=== PATIENT | female | born 1965 | race African-American/Black ===

== ENCOUNTER 2016-09-29 08:47 | Emergency (ER) | payer MEDICAID ==
[~2016-09-29] VITALS: Ht 170.2 cm; Wt 81.6 kg
[~2016-09-29 08:47] MED LIST: BENADRYL50 MG ORAL; NKM; PREDNISONE20 MG ORAL; RANITIDINE HCL150 MG ORAL
--- NOTE | 2016-09-29 10:44 | Diagnostic Imaging Report ---
Indications: PAIN Technique: 3 views of the right foot Comparison: None Findings: No acute fractures. No dislocations. Joint spaces are preserved. No radiopaque foreign body. Normal mineralization. Impression: No acute process
--- NOTE | 2016-09-29 10:44 | Diagnostic Imaging Report ---
Indication: PAIN Technique: 3 views of the right ankle Comparison: none Findings: No acute fractures. No dislocations. Joint spaces are preserved. Normal mineralization. No radiopaque foreign body. Impression: Negative
--- NOTE | 2016-09-29 10:54 | Emergency Room Report ---
History of Present Illness General Chief Complaint: Lower Extremity Injury Source: Patient Present Illness HPI [id number] with right foot pain s/p trip/fall 2 days prior. Able to ambulate. Didnt take any OTC meds for pain. No previous injury. Feels well otherwise. Pain to top of right foot. Allergies: Coded Allergies: SULFA (SULFONAMIDE ANTIBIOTICS) (Verified Allergy, Mild, Rash, 03/30/14) Patient History Past Medical History: none Past Surgical History: none Pertinent Family History: none Social History: Denies: alcohol use, drug use, smoking Last Menstrual Period: on period Now: No Immunizations: UTD Nursing Documentation-[facility] Past Medical History: No History, Except For Review of Systems All Other Systems: negative except mentioned in HPI Physical Exam Vital Signs Date Time Temp Pulse Resp B/P Pulse Ox O2 Delivery O2 Flow Rate FiO2 09/29/16 09:09 98.1 76 16 144/88 100 Room Air Sp02 EP Interpretation: reviewed, normal General Appearance: normal inspection, well appearing, no apparent distress, alert Head: atraumatic ENT: normal ENT inspection, hearing grossly normal, normal voice Neck: normal inspection, full range of motion, supple, no bony tend Respiratory: normal inspection, lungs clear, normal breath sounds, no respiratory distress, no retraction, no wheezing Cardiovascular #1: regular rate, rhythm, no edema Gastrointestinal: normal inspection, normal bowel sounds, non tender, soft, no guarding, no hernia Genitourinary: no CVA tenderness Musculoskeletal: normal inspection, back normal, normal range of motion, Kris' s Sign negative, other - Right foot: Mild swelling. Ttp to dorsum of foot. 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, motor strength/tone normal, speech normal Psychiatric: normal inspection, judgement/insight normal, mood/affect normal Skin: normal inspection, normal color, no rash Medical Decision Making Diagnostic Impression: Primary Impression: Contusion of right foot Qualified Codes: S90.31XA - Contusion of right foot, initial encounter ER Course xrays of right foot and ankle negative for acute injury DC home with RX iburpofen, RICE PMD followup Last Vital Signs Date Time Temp Pulse Resp B/P Pulse Ox O2 Delivery O2 Flow Rate FiO2 2/15/17 09:09 98.1 76 16 144/88 100 Room Air Status: improved Disposition: HOME, SELF-CARE Referrals: NOT CHOSEN [facility]/,REFERRING (PCP) XANDER DENNIS M.D. Sep 29, 2016 10:54
[2016-09-29] MEDS ORDERED: IBUPROFEN800 M1 PO (10:56)
[2016-09-29 11:05] VITALS: BP 135/84
== END 2016-09-29 11:05 | disposition home or self-care (01) ==
LOC: EMR 09:25
DX: S90.31XA Contusion of right foot, initial encounter (principal); W01.0XXA Fall on same level from slipping, tripping and stumbling without subsequent striking against object, initial encounter; Y92.9 Unspecified place or not applicable; Z88.2 Allergy status to sulfonamides
CPT/HCPCS: 99284

== ENCOUNTER 2017-05-18 04:13 | Emergency (ER) | payer MEDICAID, OTHER ==
[~2017-05-18] VITALS: Ht 170.2 cm; Wt 68.0 kg
[~2017-05-18 04:13] MED LIST changes: +IBUPROFEN800 M1 PO
[2017-05-18 04:26] VITALS: BP 132/84
[2017-05-18] MEDS ORDERED: PREDNISONE20 MG ORAL (04:42)
[2017-05-18] MEDS ORDERED: CLOTRIMAZOLE15 GM TOPIC (04:42)
[2017-05-18] MEDS ORDERED: BENADRYL25 MG ORAL (04:42)
--- NOTE | 2017-05-18 04:43 | Emergency Room Report ---
History of Present Illness General Chief Complaint: Allergic Reaction Source: Patient, Medical Record Present Illness HPI This is a 52-year-old female with history lupus. She present with a rash for a week. Itching in nature. No fever or chills. No nausea no vomiting. Denies any other complaint. She try [id number] cream without much success. Denies any other complaint. Allergies: Coded Allergies: SULFA (SULFONAMIDE ANTIBIOTICS) (Verified Allergy, Mild, Rash, 03/30/14) Patient History Past Medical History: see triage record, old chart reviewed Past Surgical History: other Pertinent Family History: none Social History: Denies: smoking Last Menstrual Period: 05/08/17 Now: No Immunizations: other Reviewed Nursing Documentation: PMH: Agreed, PSxH: Agreed Review of Systems Eye: Denies: eye pain, blurred vision ENT: Denies: ear pain, nose congestion, throat swelling Respiratory: Denies: cough, shortness of breath Cardiovascular: Denies: chest pain, palpitations Gastrointestinal: Denies: abdominal pain, diarrhea, nausea, vomiting Musculoskeletal: Denies: back pain, joint pain Skin: Reports: rash Neurological: Denies: headache, numbness Endocrine: Denies: increased thirst, increased urine Hematologic/Lymphatic: Denies: easy bruising All Other Systems: negative except mentioned in HPI Physical Exam Vital Signs Date Time Temp Pulse Resp B/P (MAP) Pulse Ox O2 Delivery O2 Flow Rate FiO2 05/18/17 04:18 97.5 88 16 132/84 98 Room Air vitals normal Sp02 EP Interpretation: reviewed, normal General Appearance: well appearing, no apparent distress, alert Head: normocephalic, atraumatic Eyes: bilateral eye PERRL, bilateral eye EOMI ENT: hearing grossly normal, normal pharynx Neck: full range of motion, supple, no meningismus Respiratory: chest non-tender, lungs clear, normal breath sounds Cardiovascular #1: regular rate, rhythm, no murmur Gastrointestinal: normal bowel sounds, non tender, no mass, no organomegaly, no bruit, non-distended Musculoskeletal: back normal, gait/station normal, normal range of motion Psychiatric: mood/affect normal Skin: warm/dry, other - Patient have scattered psoriatic rash that is chronic. She also has diffuse macular papular rash along the skin line. Medical Decision Making Diagnostic Impression: Primary Impression: Pityriasis rosea-like skin eruption ER Course Patient with a skin rash. 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 No evidence of cellulitis or abscess. Last Vital Signs Date Time Temp Pulse Resp B/P (MAP) Pulse Ox O2 Delivery O2 Flow Rate FiO2 05/18/17 04:26 97.5 88 16 132/84 98 Room Air Status: unchanged Disposition: HOME, SELF-CARE Condition: Stable Scripts Clotrimazole* (LOTRIMIN*) 15 Gm Cream..g. 1 APPLIC TOPIC TWICE A DAY, #30 GM Prov: MARLEE CASTANEDA M.D. 05/18/17 Prednisone* (PREDNISONE*) 20 Mg Tablet 60 MG ORAL DAILY, #15 TAB Prov: MARLEE CASTANEDA M.D. 05/18/17 Diphenhydramine Hcl* (BENADRYL*) 25 Mg Capsule 50 MG ORAL Q6H Y for Itching, #30 CAP Prov: MARLEE CASTANEDA M.D. 05/18/17 Referrals: PREFERRED [facility],REFERRING (PCP) Additional Instructions: Followup with your DrMarlon in 7 days 3 return if symptom worsen. MARLEE CASTANEDA M.D. May 18, 2017 04:43
[2017-05-18 04:47] VITALS: BP 129/75
== END 2017-05-18 04:47 | disposition home or self-care (01) ==
LOC: EMR 04:28
DX: L42 Pityriasis rosea (principal)
CPT/HCPCS: 99284

== ENCOUNTER 2017-05-25 00:35 | Emergency (ER) | payer OTHER ==
[~2017-05-25] VITALS: Ht 170.2 cm; Wt 72.6 kg
[~2017-05-25 00:35] MED LIST changes: +BENADRYL25 MG ORAL; +CLOTRIMAZOLE15 GM TOPIC
[2017-05-25] MEDS ORDERED: Sodium Chloride 500ML 500 ML IV ONE (00:53)
[2017-05-25] MEDS ORDERED: Solu-MEDROL 125mg Inj IVP ONE (01:00)
[2017-05-25] MEDS ORDERED: DiphenhydrAMINE 50mg/ml Inj IVP ONE (01:00)
[2017-05-25] MEDS ORDERED: HYDROCORTISONE-30 GM TOPIC (02:09)
[2017-05-25] MEDS ORDERED: PREDNISONE20 MG ORAL (02:09)
[2017-05-25] MEDS ORDERED: DIPHENHYDRAMINE25 M1 ORAL (02:09)
[2017-05-25] MEDS ORDERED: RANITIDINE HCL150 MG ORAL (02:09)
[2017-05-25 02:15] VITALS: BP 131/87
--- NOTE | 2017-05-25 02:35 | Emergency Room Report ---
History of Present Illness General Chief Complaint: Skin Rash/Abscess Source: Patient Present Illness HPI 52-year-old female presents ED complaining of rash. States she was here approximately one week ago for similar presentation. Patient was prescribed Benadryl, prednisone and clotrimazole cream without relief. Patient states rash is persisting. Patient states it is very itchy. Patient states she had similar rash a few years ago and was seen here. Patient was given IV medications and states that the rash resolves. Patient denies any known food or drug allergies. Denies fevers or chills. Denies any pain. No other aggravating relieving factors. Denies any other associated symptoms Allergies: Coded Allergies: SULFA (SULFONAMIDE ANTIBIOTICS) (Verified Allergy, Mild, Rash, 03/30/14) Patient History Past Medical History: other - lupus Past Surgical History: none Pertinent Family History: none Last Menstrual Period: Apr Now: No Immunizations: UTD Reviewed Nursing Documentation: PMH: Agreed, PSxH: Agreed Review of Systems All Other Systems: negative except mentioned in HPI Physical Exam Vital Signs Date Time Temp Pulse Resp B/P (MAP) Pulse Ox O2 Delivery O2 Flow Rate FiO2 05/25/17 00:39 98.1 82 16 131/87 97 Room Air Sp02 EP Interpretation: reviewed, normal General Appearance: no apparent distress, alert, GCS 15, non-toxic Head: normocephalic, atraumatic Eyes: bilateral eye normal inspection, bilateral eye PERRL ENT: hearing grossly normal, normal pharynx, no angioedema, normal voice Neck: full range of motion, supple/symm/no masses Respiratory: chest non-tender, lungs clear, normal breath sounds, speaking full sentences Cardiovascular #1: regular rate, rhythm, no edema Cardiovascular #2: 2+ carotid (R), 2+ carotid (L), 2+ radial (R), 2+ radial (L) , 2+ dorsalis pedis (R), 2+ dorsalis pedis (L) Gastrointestinal: normal bowel sounds, non tender, soft, non-distended, no guarding, no rebound Rectal: deferred Genitourinary: normal inspection, no CVA tenderness Musculoskeletal: back normal, gait/station normal, normal range of motion, non- tender Neurologic: alert, oriented x3, responsive, motor strength/tone normal, sensory intact, speech normal Psychiatric: judgement/insight normal, memory normal, mood/affect normal, no suicidal/homicidal ideation Reflexes: 3+ bicep (R), 3+ bicep (L), 3+ tricep (R), 3+ tricep (L), 3+ knee (R) , 3+ knee (L) Skin: normal color, warm/dry, well hydrated, other - diffuse urticarial rash Lymphatic: no adenopathy Medical Decision Making Diagnostic Impression: Primary Impression: Allergic reaction Qualified Codes: T78.40XD - Allergy, unspecified, subsequent encounter ER Course Hospital Course 52-year-old female presents with diffuse rash, itchy Differential diagnoses include: allergic reaction, anaphylaxis, cellulitis Clinical course Patient placed on stretcher. reconditioning associate. After initial history and physical exam reveals a middle-aged female in no acute distress. On exam there is a diffuse urticarial rash noted to the arms, legs, abdomen. I ordered Solu-Medrol, Benadryl, pepcid, IV fluids Upon reassessment patient states she feels better. rash has subsided i. I feel this is a highly complex case requiring extensive working including EKG/Rhythm strip, Xray/CT/US, Blood/urine lab work, repeat exams while in ED, and administration of strong opiates/narcotics for pain control, admission to hospital or close patient follow up. Diagnosis - allergic reaction Stable and discharged to home with prescriptions for Zantac, prednisone, Benadryl, hydrocortisone cream. Followup with PMD. Return to ED if symptoms recur or worsen Last Vital Signs Date Time Temp Pulse Resp B/P (MAP) Pulse Ox O2 Delivery O2 Flow Rate FiO2 05/25/17 00:39 98.1 82 16 131/87 97 Room Air Status: improved Disposition: HOME, SELF-CARE Condition: Stable Scripts Hydrocortisone/Aloe Vera 1%* (HYDROCORTISONE-ALOE 1% CREAM*) Y Cr 1 APPLIC TOPIC Q6H Y for Itching, #30 GM Prov: SARAH DURAND M.D. 05/25/17 Diphenhydramine Hcl* (DIPHENHYDRAMINE HCL*) 25 Mg Capsule 25 MG ORAL Q6H Y for Itching, #30 CAP 0 Refills Prov: SARAH DURAND M.D. 05/25/17 Ranitidine Hcl* (ZANTAC*) 150 Mg Tablet 150 MG ORAL TWICE A DAY, #30 TAB Prov: SARAH DURAND M.D. 05/25/17 Prednisone* (PREDNISONE*) 20 Mg Tablet 40 MG ORAL DAILY for 5 Days, TAB Prov: SARAH DURAND M.D. 05/25/17 Patient Instructions: Melisa [id number] SARAH DURAND M.D. May 25, 2017 02:35
== END 2017-05-25 02:15 | disposition home or self-care (01) ==
LOC: EMR 01:10
DX: T78.40XA Allergy, unspecified, initial encounter (principal); X58.XXXA Exposure to other specified factors, initial encounter; Z88.2 Allergy status to sulfonamides; M32.9 Systemic lupus erythematosus, unspecified
CPT/HCPCS: 96361; 96374; 96375; 99284; J1200; J2930; J7040; S0028

== ENCOUNTER 2017-06-20 22:58 | Emergency (ER) | payer OTHER ==
[~2017-06-20] VITALS: Ht 170.2 cm; Wt 81.6 kg
[~2017-06-20 22:58] MED LIST changes: +DIPHENHYDRAMINE25 M1 ORAL; +HYDROCORTISONE-30 GM TOPIC
[2017-06-20] MEDS ORDERED: DiphenhydrAMINE 50mg/ml Inj IVP ONE (23:45)
[2017-06-20] MEDS ORDERED: Solu-MEDROL 125mg Inj IVP ONE (23:45)
[2017-06-20] MEDS ORDERED: PREDNISONE20 MG ORAL (23:51)
[2017-06-20] MEDS ORDERED: DIPHENHYDRAMINE50 M1 ORAL (23:51)
--- NOTE | 2017-06-20 23:51 | Emergency Room Report ---
History of Present Illness General Chief Complaint: Skin Rash/Abscess Source: Patient Present Illness HPI Is a 52-year-old female with a history lupus. She's not on any medication. She presents with a rash to her body. His been on off for about a month now. She was seen here last month and prescribe medication. It got better and now came back again for last couple days. Mostly on her torso and abdomen. There is itchy. No fever or chills. No new medication. No new food for any other product. No respiratory complaint. Allergies: Coded Allergies: SULFA (SULFONAMIDE ANTIBIOTICS) (Verified Allergy, Mild, Rash, 03/30/14) Patient History Past Medical History: see triage record, old chart reviewed Past Surgical History: other Pertinent Family History: none Social History: Denies: smoking Last Menstrual Period: May Now: No Immunizations: other Reviewed Nursing Documentation: PMH: Agreed, PSxH: Agreed Review of Systems Eye: Denies: eye pain, blurred vision ENT: Denies: ear pain, nose congestion, throat swelling Respiratory: Denies: cough, shortness of breath Cardiovascular: Denies: chest pain, palpitations Gastrointestinal: Denies: abdominal pain, diarrhea, nausea, vomiting Musculoskeletal: Denies: back pain, joint pain Skin: Reports: rash Neurological: Denies: headache, numbness Endocrine: Denies: increased thirst, increased urine Hematologic/Lymphatic: Denies: easy bruising All Other Systems: negative except mentioned in HPI Physical Exam Vital Signs Date Time Temp Pulse Resp B/P (MAP) Pulse Ox O2 Delivery O2 Flow Rate FiO2 06/20/17 23:12 98.2 64 18 138/91 98 Room Air vitals normal Sp02 EP Interpretation: reviewed, normal General Appearance: well appearing, no apparent distress, alert Head: normocephalic, atraumatic Eyes: bilateral eye PERRL, bilateral eye EOMI ENT: hearing grossly normal, normal pharynx Neck: full range of motion, supple, no meningismus Respiratory: chest non-tender, lungs clear, normal breath sounds Cardiovascular #1: regular rate, rhythm, no murmur Gastrointestinal: normal bowel sounds, non tender, no mass, no organomegaly, no bruit, non-distended Musculoskeletal: back normal, gait/station normal, normal range of motion Neurologic: alert, oriented x3 Psychiatric: mood/affect normal Skin: warm/dry, other - Diffuse erythematous rash on her back and torso. No abscess. Medical Decision Making Diagnostic Impression: Primary Impression: Dermatitis ER Course Patient with dermatitis. This is most likely any means rather than allergic or infectious. We'll discharge home with Benadryl and steroid. We'll have her followup with her DrMarlon for referral to see a comparative sociology professor. No anaphylaxis. Last Vital Signs Date Time Temp Pulse Resp B/P (MAP) Pulse Ox O2 Delivery O2 Flow Rate FiO2 06/20/17 23:12 98.2 64 18 138/91 98 Room Air Status: improved Disposition: HOME, SELF-CARE Condition: Stable Scripts Diphenhydramine Hcl (DIPHENHYDRAMINE HCL) 50 Mg Capsule 50 MG ORAL Q6H Y for Itching, #30 CAP 0 Refills Prov: MARLEE CASTANEDA M.D. 06/20/17 Prednisone* (PREDNISONE*) 20 Mg Tablet 60 MG ORAL DAILY, #15 TAB Prov: MARLEE CASTANEDA M.D. 06/20/17 Patient Instructions: Rash Additional Instructions: Followup with your DrMarlon in 7 days. You may benefit from referral to see a comparative sociology professor. Return if symptom worsen. MARLEE CASTANEDA M.D. Jun 20, 2017 23:51
[2017-06-20 23:56] VITALS: BP 126/80
[2017-06-20 23:57] VITALS: BP 138/91
== END 2017-06-20 23:58 | disposition home or self-care (01) ==
LOC: EMR 23:34
DX: L30.9 Dermatitis, unspecified (principal); Z88.2 Allergy status to sulfonamides
CPT/HCPCS: 96374; 96375; 99284; J1200; J2930

== ENCOUNTER 2018-02-18 17:46 | Emergency (ER) | payer MEDICAID, OTHER ==
[~2018-02-18] VITALS: Ht 170.2 cm; Wt 81.6 kg
[~2018-02-18 17:46] MED LIST changes: +DIPHENHYDRAMINE50 M1 ORAL
[2018-02-18 18:00] VITALS: BP 137/92
--- NOTE | 2018-02-18 18:25 | Emergency Room Report ---
History of Present Illness General Chief Complaint: Edema Source: Patient Present Illness HPI 52-year-old female presents emergency department complaining of edema on the bilateral feet 1 week in addition to progressive itchy rash to the legs bilaterally. Patient denies pain, fevers, chills, recent travel or ill contacts. She denies history of edema in the past, high blood pressure for cardiac problems. she denies productive cough. Pt. reports swelling resolves in the morning after rest and returns over the course of each day. She reports history of lupus with frequent flares however she typically treats her symptoms with homeopathic remedies. Patient states that she believes the rash began after she was soaking her feet and water with lavender oil. She also reports that onset of her edema occurred after she ate some salty chips for several days in a row. Denies recent steroid use. Patient states that she normally eats very healthy. Denies new medications or body washes or creams. Denies swelling of the lips, tongue , throat or airway. Denies wheezing, or shortness of breath. Denies recent travel, recent illness or ill contacts. denies blisters, oral lesions, or sloughing of the skin Allergies: Coded Allergies: SULFA (SULFONAMIDE ANTIBIOTICS) (Verified Allergy, Mild, Rash, 03/30/14) Patient History Past Medical History: see triage record, other - lupus Past Surgical History: none Pertinent Family History: none Last Menstrual Period: NA Reviewed Nursing Documentation: PMH: Agreed; PSxH: Agreed Nursing Documentation-PM Past Medical History: No Stated History Review of Systems All Other Systems: negative except mentioned in HPI Physical Exam Vital Signs Date Time Temp Pulse Resp B/P (MAP) Pulse Ox O2 Delivery O2 Flow Rate FiO2 02/18/18 17:51 97.9 75 16 137/92 93 Room Air 97.9 Sp02 EP Interpretation: reviewed, normal General Appearance: no apparent distress, alert, GCS 15, non-toxic Head: normocephalic, atraumatic ENT: hearing grossly normal, normal voice, other - no swelling of the lips or tongue Neck: full range of motion Respiratory: chest non-tender, lungs clear, normal breath sounds, speaking full sentences Cardiovascular #1: regular rate, rhythm, normal capillary refill, edema - localized to the dorsum of the bilateral feet, no toe involvement, does not pass level of the ankles. Cardiovascular #2: 2+ dorsalis pedis (R), 2+ dorsalis pedis (L) Musculoskeletal: back normal, gait/station normal, normal range of motion, non- tender, other - bilateral pedal edema Neurologic: alert, oriented x3, responsive, motor strength/tone normal, sensory intact, speech normal, grossly normal Psychiatric: judgement/insight normal Skin: normal color, warm/dry, well hydrated, rash - erythematous papules generalized on bilateral feet, LE's and scant on bilateral forearms. excoriations noted. no particular pattern, no blisters or vesicles. Lymphatic: no adenopathy Medical Decision Making PA Attestation Dr. Francis is my supervising Physician whom patient management has been discussed with. Diagnostic Impression: Primary Impression: Rash and other nonspecific skin eruption Additional Impression: Pedal edema ER Course 52-year-old female presents emergency department complaining of edema on the bilateral feet 1 week in addition to progressive itchy rash to the legs bilaterally. Patient denies pain, fevers, chills, recent travel or ill contacts. She denies history of edema in the past, high blood pressure for cardiac problems. she denies productive cough. Pt. reports swelling resolves in the morning after rest and returns over the course of each day. She reports history of lupus with frequent flares however she typically treats her symptoms with homeopathic remedies. Patient states that she believes the rash began after she was soaking her feet and water with lavender oil. She also reports that onset of her edema occurred after she ate some salty chips for several days in a row. Denies recent steroid use. Patient states that she normally eats very healthy. Denies new medications or body washes or creams. Denies swelling of the lips, tongue , throat or airway. Denies wheezing, or shortness of breath. Denies recent travel, recent illness or ill contacts. denies blisters, oral lesions, or sloughing of the skin. Ddx considered but are not limited to cellulitis, scabies, shingles, varicella, dermatitis, urticaria, eczema, tinea, viral exanthem, SJS, Lupus flare, venous insufficiency, nephritis. Vital signs: are WNL, pt. is afebrile H&PE are most consistent with mild bilateral foot edema, not suspicious for DVT based on HPI and PE. dermatitis also noted no evidence of secondary infection. ORDERS: none required at this time, the diagnosis is clinical ED INTERVENTIONS: Benadryl D/w pt. close outpatient follow up and eval of symptoms. d/w pt. due to lupus and edema oral diuretics may cause decline in renal function and that I will reserve the prescription of these to her PCP as her symptoms are noted to be mild at this time. also d/w pt. benadryl tx as edema could be associated with dermatitis reaction. DISCHARGE: At this time pt. is stable for d/c to home. Will provide printed patient care instructions, and any necessary prescriptions. Care plan and follow up instructions have been discussed with the patient prior to discharge. Last Vital Signs Date Time Temp Pulse Resp B/P (MAP) Pulse Ox O2 Delivery O2 Flow Rate FiO2 02/18/18 17:51 97.9 75 16 137/92 93 Room Air 97.9 Disposition: HOME, SELF-CARE Condition: Stable Scripts Diphenhydramine Hcl (BENADRYL ALLERGY) 25 Mg Tablet 25 MG PO Q6HR, #20 TAB Prov: Dania Juarez 02/18/18 Patient Instructions: Peripheral Edema Additional Instructions: Take medications as directed. - avoid salty foods. - eat plenty of lean protein. Follow up with a Primary Care Provider in 3-5 days for continued evaluation of your symptoms and monitoring of swelling --Please review list of primary care clinics, if you do not already have a primary care provider Return sooner to ED if new symptoms occur, or current symptoms become worse. Do not drink alcohol, drive, or operate heavy machinery while taking Benadryl as this may cause drowsiness. - Please note that this Emergency Department Report was dictated using [employer] captain technology software, occasionally this can lead to erroneous entry secondary to interpretation by the dictation equipment. Dania Juarez Feb 18, 2018 18:25
[2018-02-18] MEDS ORDERED: BENADRYL ALLERG25 M1 PO (18:48)
[2018-02-18 18:55] VITALS: BP 137/92
== END 2018-02-18 18:55 | disposition home or self-care (01) ==
LOC: EMR 18:20
DX: R21 Rash and other nonspecific skin eruption (principal); R60.0 Localized edema; Z88.2 Allergy status to sulfonamides
CPT/HCPCS: 99283

== ENCOUNTER 2018-08-02 12:37 | Emergency (ER) | payer MEDICAID ==
[~2018-08-02] VITALS: Ht 170.2 cm; Wt 86.2 kg
[~2018-08-02 12:37] MED LIST changes: +BENADRYL ALLERG25 M1 PO
[2018-08-02] MEDS ORDERED: NKM (12:45)
--- NOTE | 2018-08-02 13:08 | Emergency Room Report ---
History of Present Illness General Chief Complaint: Chest Pain Source: Patient Present Illness HPI This patient was walking to her car and she experienced a "squeezing" sensation mid-thorax. Lasted about 20 minutes. No sob, diaph, nausea, radiation. No similar history. Not during exertion. CRF: none PMH: lupus, no meds required Allergies: Coded Allergies: SULFA (SULFONAMIDE ANTIBIOTICS) (Verified Allergy, Mild, Rash, 03/30/14) Patient History Now: No Review of Systems Constitutional: Reports: no symptoms Eye: Reports: no symptoms ENT: Reports: no symptoms Respiratory: Reports: no symptoms Cardiovascular: Reports: no symptoms Gastrointestinal: Reports: no symptoms Genitourinary: Reports: no symptoms Musculoskeletal: Reports: no symptoms Skin: Reports: no symptoms Psychiatric: Reports: no symptoms Neurological: Reports: no symptoms Endocrine: Reports: no symptoms Hematologic/Lymphatic: Reports: no symptoms Allergic: Reports: no symptoms All Other Systems: negative except mentioned in HPI Physical Exam Vital Signs Date Time Temp Pulse Resp B/P (MAP) Pulse Ox O2 Delivery O2 Flow Rate FiO2 08/02/18 12:42 98.1 97 18 121/79 96 Room Air Sp02 EP Interpretation: reviewed, normal General Appearance: normal inspection, well appearing, no apparent distress, alert, GCS 15, non-toxic Head: normocephalic, atraumatic Eyes: bilateral eye normal inspection, bilateral eye PERRL, bilateral eye EOMI ENT: normal ENT inspection, hearing grossly normal, normal pharynx, no angioedema, normal voice, moist mucus membranes Neck: normal inspection, full range of motion, supple, no meningismus, no bony tend Respiratory: normal inspection, lungs clear, normal breath sounds, no rhonchi, no respiratory distress, no retraction, no accessory muscle use, no wheezing Cardiovascular #1: normal inspection, regular rate, rhythm, no edema Gastrointestinal: normal inspection, normal bowel sounds, non tender, soft, no mass, non-distended Musculoskeletal: gait/station normal, normal range of motion Neurologic: normal inspection, alert, oriented x3, responsive, motor strength/ tone normal Psychiatric: normal inspection, judgement/insight normal, memory normal Suicide Risk Assessment: Suicidal Ideation: No Had intent to initiate attempt: No Pt's plan for suicide attempt: No Has means to complete attempt: No Skin: normal inspection, normal color, no rash, warm/dry Medical Decision Making Diagnostic Impression: Primary Impression: Chest pain ER Course EMERGENT LABS AND DIAGNOSTIC STUDIES: Lab Results were reviewed by me and interpreted as below. Unremarkable 12-lead EKG Interpretation by Silver Boyd MD: Normal Sinus Rhythm at 97 beats per minute Normal axis QT not prolonged Overall impression is normal sinus rhythm Radiology Results as interpreted by Radiology below were reviewed by Silver Boyd MD : CXR: NAD Nursing Notes Reviewed The patient was placed on a investigative writer, continuous pulse oximetry, and tests as ordered. The patient was treated with aspirin. My differential diagnosis included: ACS, myocardial infarction, angina, pericarditis, aortic dissection, pleurisy, pleural effusion, pneumothorax, pneumonia, PE, costochondritis, PUD, gastritis, GERD, muscular. I observed the patient for a period of time and the patient had nor further complaint. On reassessment, the patient's history, vital signs, exam and studies were all reviewed. I will re-evaluate for further workup and recommendation based on the diagnostic testing results and how the patient responds to treatment. My initial impression was: Atypical chest pain. My final impression was the same. I am not worried about PE, since the patient was not complaining of SOB, and did not have hypoxia, hemoptysis, tachycardia or syncope. Chest x-ray was negative with no signs of acute disease. The patient was advised to arrive back to the ED for new or worsening symptoms. This patient presents with signs and symptoms potentially concerning for coronary ischemia. While it is not possible to be 100% accurate about the etiology of the patient's chest pain at this time (after an ED evaluation.) The patient's KHALIDA Score is: 0. The patient's HEART Score is: 2. I told the patient that the risk of ACS/ischemia is not zero but is very unlikely. The patient confirmed heard my advice and agreed to see their own physician within two days. In addition the name of the on-call pumper gauger apprentice is provided in the discharge papers. Pt. advised to return for further episodes especially if he were to develop exertional chest pain. KHALIDA: age 65 years or older 0 at least 3 risk factors for coronary artery disease 0 prior coronary stenosis of 50% or more 0 ST-segment deviation on ECG at presentation 0 at least two anginal events in prior 24 hours 0 use of aspirin in the prior seven days 0 elevated serum cardiac biomarkers 0 HEART: (0-2 for five variables) History 1 EKG (ST depr = 1mm) 0 Age (45-65) 1 Risk Factors (1-2) 0 Troponin (1-2x) 0 The patient is a good candidate for outpatient care and will be discharged with instructions to follow up with their PMD in 1-2 days. I explained the findings and plan to the patient, who expressed verbal understanding and agreed with plan for discharge and follow up. The patient was given after care instructions and welcomed to return to the ED for any new or worsening symptoms. The patient was stable at the time of discharge. I d/w patient my recommendation for a stress test and patient says her doctor is available to her and she will contact him. She understands to return if she has any further problems, especially exertional symptoms. I have asked Dr. Francis to check troponin level. Anticipate normal. EKG Diagnostic Results EKG Time: 13:08 Rate: normal Rhythm: NSR ST Segments: no acute changes ASA given to the pt in ED: Yes Rhythm Strip Diag. Results Rhythm Strip Time: 13:15 EP Interpretation: yes Rate: 79 Rhythm: NSR Chest X-Ray Diagnostic Results Chest X-Ray Diagnostic Results : Chest X-Ray Ordered: Yes # of Views/Limited/Complete: 1 View Indication: Chest Pain EP Interpretation: Yes Interpretation: no consolidation, no effusion, no pneumothorax Impression: No acute disease Last Vital Signs Date Time Temp Pulse Resp B/P (MAP) Pulse Ox O2 Delivery O2 Flow Rate FiO2 08/02/18 12:42 98.1 97 18 121/79 96 Room Air Disposition: HOME, SELF-CARE Condition: Stable Referrals: Ulices Ruiz MD (PCP) Patient Instructions: Nonspecific Chest Pain Additional Instructions: Please make appointment with your physician as soon as possible to arrange a "stress test." If you develop any further problems/issues/complaints, please return to ED. If you develop exertional complaints such as shortness of breath, chest pain, fatigue, please return to ED. Tylor Boyd M.D. Aug 02, 2018 13:08
[2018-08-02 13:30] LABS: BASOPHILS % (AUTO) 0.6 % (0.0-2.0); EOSINOPHILS % (AUTO) 3.2 % (0.0-3.0); HEMATOCRIT 36.4 % (37.0-47.0); HEMOGLOBIN 11.9 G/DL (12.0-16.0); LYMPHOCYTES % (AUTO) 40.3 % (20.0-45.0); MEAN CORPUSCULAR VOLUME 85 FL (80-99); MONOCYTES % (AUTO) 6.8 % (1.0-10.0); NEUTROPHILS % (AUTO) 49.1 % (45.0-75.0); PLATELET COUNT 286 K/UL (150-450); RED CELL DISTRIBUTION WIDTH 11.7 % (11.6-14.8); WHITE BLOOD COUNT 4.7 K/UL (4.8-10.8)
[2018-08-02 13:38] LABS: ANION GAP 10 mmol/L (5-15); BLOOD UREA NITROGEN 6 mg/dL (7-18); CALCIUM 9.3 MG/DL (8.5-10.1); CARBON DIOXIDE 26 MMOL/L (21-32); CHLORIDE 104 MMOL/L (98-107); CREATININE 0.7 MG/DL (0.55-1.30); POTASSIUM 3.6 MMOL/L (3.5-5.1); SODIUM 140 MMOL/L (136-145)
[2018-08-02 13:43] LABS: ALANINE AMINOTRANSFERASE 51 U/L (12-78); ALBUMIN 3.6 G/DL (3.4-5.0); ALBUMIN/GLOBULIN RATIO 0.8 (1.0-2.7); ALKALINE PHOSPHATASE 100 U/L (46-116); ASPARTATE AMINO TRANSFERASE 30 U/L (15-37); BILIRUBIN,TOTAL 0.5 MG/DL (0.2-1.0); CHOLESTEROL 144 MG/DL (< 200); HDL CHOLESTEROL 37 MG/DL (40-60); TRIGLYCERIDES 100 MG/DL (30-150)
[2018-08-02 14:09] VITALS: BP 142/100
--- NOTE | 2018-08-02 14:46 | Diagnostic Imaging Report ---
Indication: Chest pain Technique: One view of the chest Comparison: none Findings: Heart is enlarged. Lungs and pleural spaces are clear. Impression: Cardiomegaly. No acute process
== END 2018-08-02 14:14 | disposition home or self-care (01) ==
LOC: EMR 13:00
DX: R07.89 Other chest pain (principal); Z88.2 Allergy status to sulfonamides
CPT/HCPCS: 36415; 71045; 80053; 80061; 84484; 85025; 93005; 99283

== ENCOUNTER 2018-08-09 11:29 | Emergency (ER) | payer MEDICAID ==
[~2018-08-09] VITALS: Ht 170.2 cm; Wt 86.2 kg
[2018-08-09 11:53] VITALS: BP 139/88
--- NOTE | 2018-08-09 12:15 | Emergency Room Report ---
History of Present Illness General Chief Complaint: Pain Source: Patient Present Illness HPI 53-year-old female patient presents the ER complaining of right-sided facial numbness and tingling for the past 2 days. Reports she is unable to smile or raise her eyebrow during this time. Reports recent history of cold. Reports history of genital herpes when she was a child. Denies history of shingles. Reports she is up-to-date on vaccinations. Denies taking any blood thinner medication. Denies fever, chest pain, shortness of breath. Denies vomiting or diarrhea. Denies history of high blood pressure or atrial fibrillation. Denies history of heart attack or stroke. Allergies: Coded Allergies: SULFA (SULFONAMIDE ANTIBIOTICS) (Verified Allergy, Mild, Rash, 03/30/14) Patient History Past Medical History: see triage record Reviewed Nursing Documentation: PMH: Agreed; PSxH: Agreed Nursing Documentation-PMH Past Medical History: No History, Except For Review of Systems All Other Systems: negative except mentioned in HPI Physical Exam Vital Signs Date Time Temp Pulse Resp B/P (MAP) Pulse Ox O2 Delivery O2 Flow Rate FiO2 08/09/18 11:53 98.1 67 18 139/88 98 Room Air Sp02 EP Interpretation: reviewed, normal General Appearance: well appearing, no apparent distress, alert, GCS 15, non- toxic Head: normocephalic, atraumatic, other - no erythema or edema Eyes: bilateral eye normal inspection, bilateral eye PERRL, bilateral eye EOMI ENT: hearing grossly normal, normal pharynx, no angioedema, normal voice, TMs + canals normal, uvula midline, moist mucus membranes, other - No tenderness to palpation of teeth, no gum erythema or edema Neck: full range of motion, no bony tend Respiratory: lungs clear, normal breath sounds, no rhonchi, no respiratory distress, no accessory muscle use, no wheezing, speaking full sentences Cardiovascular #1: regular rate, rhythm, no edema Musculoskeletal: back normal, digits/nails normal, gait/station normal, normal range of motion, non-tender Neurologic: alert, oriented x3, responsive, continuous drier operator III-XII nml as tested, motor strength/tone normal, sensory intact, cerebellar normal, normal gait, speech normal, facial droop - Right side of face including forehead, unable to wrinkle forehead Psychiatric: mood/affect normal Skin: no rash Medical Decision Making PA Attestation Dr. Francis is my supervising Physician whom patient management has been discussed with. Diagnostic Impression: Primary Impression: Beatty's palsy ER Course Pt. presents to the ED c/o right sided facial droop and numbness. Ddx considered but are not limited to Beatty's palsy, stroke, herpes zoster, otitis media. Vital signs: are WNL, pt. is afebrile ER COURSE: Physical exam shows right-sided facial droop, unable to wrinkle forehead. No tongue deviation. No vesicles on ear. No TM erythema, no loss of light reflex, low suspicion for otitis media. No vesicles on the external meatus ear low suspicion for herpes zoster. No chest pain, no shortness of breath, no history of stroke, no slurred speech, no arm or leg weakness, cranial nerves intact as tested. Low suspicion for stroke, cardiovascular disease. CT Head negative, low suspicion for ICH. Will treat patient for Beatty's palsy. Instructed patient to follow up with primary care provider and discuss referral to neurology as needed. Informed patient likely viral cause of symptoms. Denies hx of herpes, will provide Valacyclovir to cover for possible infection. Return to ER for new or worsening of symptoms. Will provide with medication.. DISCHARGE: -Rx provided for Valacyclovir 1000mg, TID x 7 days -Rx provided for Prednisone 600mg, daily x7 days At this time pt is stable for d/c to home. Patient is resting comfortably, in no acute distress, nontoxic appearing, talking without difficulty. Patient to take medications as instructed Will provide with patient care instructions and any necessary prescriptions. Care plan and follow-up instructions provided. Patient instructed to follow-up with primary care provider in 3 - 5 days. Patient questions asked and answered. Patient reports understanding and agreement to treatment plan. ER precautions given. Patient instructed to return to ER immediately for any new or worsening of symptoms including but not limited to increasing SOB, persistent fever, chest pain, intractable vomiting. - Please note that this Emergency Department Report was dictated using [employer] operator technology software, occasionally this can lead to erroneous entry secondary to interpretation by the dictation equipment. CT/MRI/US Diagnostic Results CT/MRI/US Diagnostic Results : Imaging Test Ordered: CT head Impression No evidence of acute intracranial hemorrhage, mass-effect or cortical edema Last Vital Signs Date Time Temp Pulse Resp B/P (MAP) Pulse Ox O2 Delivery O2 Flow Rate FiO2 08/09/18 11:53 98.1 67 18 139/88 98 Room Air Status: improved Disposition: HOME, SELF-CARE Condition: Stable Scripts Valacyclovir Hcl* (VALTREX*) 500 Mg Tablet 1000 MG ORAL TID, #14 TAB Prov: Brenden Martinez 08/09/18 Prednisone* (PREDNISONE*) 20 Mg Tablet 60 MG ORAL DAILY for 7 Days, #21 TAB Prov: Brenden Martinez 08/09/18 Patient Instructions: Beatty Palsy Additional Instructions: Followup with primary care provider in 2-3 days. Followup with neurologist. Followup with manufacturing operator as previously instructed. Take medications as directed. Patient questions asked and answered. ER precautions given, patient instructed to return to ER immediately for any new or worsening of symptoms. Brenden Martinez Aug 09, 2018 12:14
--- NOTE | 2018-08-09 12:54 | Diagnostic Imaging Report ---
Indication: Right-sided facial numbness and tingling for 2 days Technique: Continuous helical CT scanning of the head was performed utilizing automated exposure control without intravenous contrast material. Axial and coronal reconstructions were obtained. Comparison: None CT dose: Total DLP 1277.56 mGycm; CTDI vol 70.38 mGy Findings: There is no acute intracranial hemorrhage, mass effect or evidence to suggest cortical edema. There is no shift of the midline structures. Garcia-white differentiation appears preserved. The ventricles, cisterns and sulci are within normal limits for age. Visualized mastoid air cells and paranasal sinuses are unremarkable. No focal lesions of the bony calvarium or soft tissues of the scalp are seen. Impression: No evidence of acute intracranial hemorrhage, mass effect or cortical edema. MRI may be obtained for more sensitive evaluation as clinically indicated. The CT scanner at [facility] is accredited by the [employer] and the scans are performed using protocols designed to limit radiation exposure to as low as reasonably achievable to attain images of sufficient resolution adequate for diagnostic evaluation.
[2018-08-09] MEDS ORDERED: PREDNISONE20 MG ORAL (13:07)
[2018-08-09] MEDS ORDERED: VALACYCLOVIR500 MG ORAL (13:07)
[2018-08-09 13:18] VITALS: BP 130/67
== END 2018-08-09 13:18 | disposition home or self-care (01) ==
LOC: EMR 13:11
DX: G51.0 Bell's palsy (principal); Z88.2 Allergy status to sulfonamides
CPT/HCPCS: 70450; 99284

== ENCOUNTER 2019-05-12 12:38 | Emergency (ER) | payer MEDICAID ==
[~2019-05-12] VITALS: Ht 170.2 cm; Wt 90.7 kg
[~2019-05-12 12:38] MED LIST changes: +VALACYCLOVIR500 MG ORAL
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
--- NOTE | 2019-05-12 12:50 | NUR ---
ED Nurse Note: jonathan is alert awake x4 ambulatory steady gait, breathing unlabored and even, speaking in full sentences. DANIELA Ugalde at bedside.
[2019-05-12] MEDS ORDERED: HYDROcodone/Acetamin 5/325 tab ORAL ONE (13:00)
[2019-05-12] MEDS ORDERED: IBUPROFEN600 MG ORAL (13:03)
[2019-05-12] MEDS ORDERED: LIDOCAINE700 M1 TP (13:03)
[2019-05-12] MEDS ORDERED: ROBAXIN-500MG ORAL (13:03)
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
[2019-05-12 13:54] VITALS: BP 151/98
[2019-05-12 14:15] VITALS: BP 151/98
--- NOTE | 2019-05-12 14:15 | NUR ---
ER DISCHARGE NOTE: Patient is cleared to be discharged per ESAU Rhodes, pt is aox4, on room air, with stable vital signs. pt was given dc and prescription instructions, pt was able to verbalize understanding, pt id band removed without complications. pt is able to ambulate with steady gait. pt took all belongings. patient reports her friend is picking her up.
== END 2019-05-12 14:15 | disposition home or self-care (01) ==
LOC: EMR 13:07
DX: M25.511 Pain in right shoulder (principal); Z88.2 Allergy status to sulfonamides; V43.52XA Car driver injured in collision with other type car in traffic accident, initial encounter; Y92.410 Unspecified street and highway as the place of occurrence of the external cause
CPT/HCPCS: 99282

== ENCOUNTER 2019-09-19 15:56 | Emergency (ER) | payer MEDICAID ==
[~2019-09-19] VITALS: Ht 170.2 cm; Wt 90.7 kg
[~2019-09-19 15:56] MED LIST changes: +IBUPROFEN600 MG ORAL; +LIDOCAINE700 M1 TP; +ROBAXIN-500MG ORAL
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
--- NOTE | 2019-09-19 16:28 | NUR ---
ED Nurse Note: patient down to ct via wheelchair with radiology physician.
[2019-09-19 16:32] VITALS: BP 154/93
--- NOTE | 2019-09-19 16:35 | NUR ---
ED Nurse Note: pt back from ct no acute distress. reports pain; pt states pain is tolerable and medication is not needed.
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
[2019-09-19] MEDS ORDERED: IBUPROFEN600 MG ORAL (17:01)
[2019-09-19] MEDS ORDERED: ROBAXIN-500MG ORAL (17:02)
[2019-09-19] MEDS ORDERED: MECLIZINE HCL25 MG ORAL (17:02)
--- NOTE | 2019-09-19 17:05 | NUR ---
ER DISCHARGE NOTE: Patient is cleared to be discharged per ERMD, pt is aox4, on room air, with stable vital signs. pt was given dc and prescription instructions, pt was able to verbalize understanding, pt id band removed. pt is able to ambulate with steady gait. pt took all belongings.
--- NOTE | 2019-09-20 08:16 | Diagnostic Imaging Report ---
Indication: Headache Technique: Contiguous 5 mm thick transaxial imaging of the head obtained in a Siemens Sensation [address] scanner. Soft tissue and bone windows generated. Automatic Exposure Control was utilized. Total Dose length Product (DLP): 1269.[address] Dose Index Volume (CTDIvol): 62.7 mGy Comparison: 08/09/2018 Findings: The size and configuration of the cortical sulci, basal cisterns, and ventricles are within normal limits for age. There is no mass effect, midline shift, or edema identified. There is no evidence of acute hemorrhage or abnormal intra-axial or extra-axial fluid collections. The bones and soft tissues are unremarkable. Impression: No mass effect, edema or acute bleed. The CT scanner at [facility] is accredited by the [employer] and the scans are performed using dose optimization techniques as appropriate to a performed exam including Automatic Exposure control.
== END 2019-09-19 17:05 | disposition home or self-care (01) ==
LOC: EMR 16:25
DX: S00.93XA Contusion of unspecified part of head, initial encounter (principal); S16.1XXA Strain of muscle, fascia and tendon at neck level, initial encounter; S39.012A Strain of muscle, fascia and tendon of lower back, initial encounter; V43.52XA Car driver injured in collision with other type car in traffic accident, initial encounter; Y92.410 Unspecified street and highway as the place of occurrence of the external cause
CPT/HCPCS: 70450; Z7502; 99284